=== PATIENT | female | born 1975 | race Caucasian/White ===

== ENCOUNTER 2024-02-10 00:29 | Emergency (ER) | payer SELFPAY ==
[~2024-02-10] VITALS: Ht 167.6 cm; Wt 140.0 kg
[2024-02-10 00:32] VITALS: O2SAT 96
[2024-02-10 01:15] LABS: CHLORIDE 103 mEq/L (98-107); POTASSIUM 4.2 mEq/L (3.5-5.1); SODIUM 135 mEq/L (136-145)
[2024-02-10 01:16] LABS: CARBON DIOXIDE 21 mEq/L (21-32)
[2024-02-10 01:17] LABS: CALCIUM 9.2 mg/dL (8.7-10.4)
[2024-02-10 01:18] LABS: BASOPHILS % 0.5 % (0.0-2.0); EOSINOPHILS % 0.1 % (0.0-5.0); HEMATOCRIT. 42.5 % (36.0-48.0); HEMOGLOBIN. 14.1 g/dL (12.0-16.0); LYMPHOCYTES % 19.2 % (20.0-50.0); MEAN CORPUSCULAR HEMOGLOBIN 28.7 pg (28.0-32.0); MEAN CORPUSCULAR HGB CONC 33.1 g/dL (31.0-37.0); MEAN CORPUSCULAR VOLUME 86.7 fL (81.0-99.0); MEAN PLATELET VOLUME 8.5 fl (7.4-10.4); MONOCYTES % 4.8 % (2.0-8.0); NEUTROPHILS % 75.4 % (40.0-76.0); PLATELET 296 x1000/uL (130-400); WHITE BLOOD COUNT 11.9 x1000/uL (4.5-11.0)
[2024-02-10 01:21] LABS: CREATININE 0.8 mg/dL (0.6-1.0); GLUCOSE 211 mg/dL (70-105); UREA NITROGEN BLOOD 8 mg/dL (9-23)
[2024-02-10 01:22] LABS: ETHANOL BLOOD 127 mg/dL (<10)
[2024-02-10 01:44] LABS: PROTHROMBIN TIME 10.7 sec (9.6-11.0)
[2024-02-10] MEDS: SODIUM CHLORIDE 0.9% 1,000 ML IV ONE (02:00)
[2024-02-10] MEDS ORDERED: MAG355OR21 MT (05:19)
[2024-02-10] MEDS ORDERED: ONDA4TAB50 MT (05:19)
[2024-02-10] MEDS: MAGNESIUM/ALUMINUM HYDROXIDE/SIMETHICONE 30ML UDC PO NR (05:25)
[2024-02-10] MEDS: ACETAMINOPHEN 325MG TABLET PO NR (05:26)
[2024-02-10 05:30] VITALS: BP 124/67; PULSE 90; RESP 24; TEMP 37.05852; O2SAT 97
== END 2024-02-10 05:53 | disposition home or self-care (01) ==
LOC: ER 00:29
DX: F10.129 Alcohol abuse with intoxication, unspecified (principal); R10.13 Epigastric pain; F41.9 Anxiety disorder, unspecified; E11.9 Type 2 diabetes mellitus without complications; Z90.49 Acquired absence of other specified parts of digestive tract; Y90.6 Blood alcohol level of 120-199 mg/100 ml
CPT/HCPCS: 80048; 80320; 83690; 85025; 85610; 36415; 96360; 96361; 99285; J7030; G0480